=== PATIENT | male | born 1990 | race Caucasian/White ===

== ENCOUNTER 2023-08-16 17:54 | Emergency (ER) | payer OTHER ==
[~2023-08-16] VITALS: Ht 177.8 cm; Wt 101.0 kg
[2023-08-16] MEDS ORDERED: GRALISE900 MG PO (18:09)
[2023-08-16] MEDS ORDERED: CLONIDINE HCL0.1 M1 PO (18:09)
[2023-08-16] MEDS ORDERED: BUSPIRONE HCL5 MG PO ×2 (18:09→18:25)
[2023-08-16] MEDS ORDERED: CLONIDINE HCL0.1 MG PO (18:25)
[2023-08-16] MEDS ORDERED: NEURONTIN300 MG PO (18:25)
[2023-08-16 19:08] VITALS: BP 164/90
--- OUTSIDE RECORDS SUMMARY | 2023-08-16 19:24 | XMS ---
PreManage Notification: WENDY FAUST Security Services Clerk Events No recent Security Events currently on file CRITERIA MET - [facility] -, Jennyfer- Dentist: Laboratory Tech Current [facility] PHONE: [phone] Lonnie has no Care Guidelines for this patient. E.DWalter VISIT COUNT (12 MO.) [address] [place] [id number] MAYI Ling TOTAL 3 NOTE: Visits indicate total known visits. ED/UCC VISIT TRACKING (12 MO.) 08/16/2023 17:56 MAY[facility] Carr [place] TYPE: Emergency COMPLAINT: - WITHDRAWALS 05/01/2023 14:45 [facility] [place] TYPE: Emergency 09/27/2022 16:45 [facility] [employer] [place] TYPE: Emergency INPATIENT VISIT TRACKING (12 MO.) No inpatient visits to display in this time frame [email or web address]
== END 2023-08-16 19:06 | disposition home or self-care (01) ==
LOC: ED 17:54
DX: F10.90 Alcohol use, unspecified, uncomplicated (principal); Z79.899 Other long term (current) drug therapy
CPT/HCPCS: 99283; A9270